=== PATIENT | female | born 1985 | race Caucasian/White ===

== ENCOUNTER 2022-12-06 09:13 | Emergency (ER) | payer OTHER, SELFPAY ==
[2022-12-06 09:24] VITALS: BP 188/77; PULSE 79; RESP 15; TEMP 36.7; O2SAT 98; BMI 35.2
--- NOTE | 2022-12-06 09:31 | PC.NURSE ---
Pt sent here for approx 10 days of bleeding,pt denies pain at triage.
[2022-12-06 09:48] LABS: Bacteria Urine None Seen; Culture Indicated Urine Cult Not Indicated; RBC Urine 10-30/HPF (0-5/HPF); WBC Urine None Seen (0-5/HPF)
[2022-12-06 09:49] LABS: Squamous Epithelial Cell Urine 0-1 /HPF (0-5/HPF)
--- NOTE | 2022-12-06 12:22 | DI.US.S_ITS ---
PROCEDURE: US PELVIC COMPLETE INDICATIONS: PELVIC PAIN [id number] DAYS HX FIB. ENDOMETRIOSIS LT OOPHO TECHNIQUE: Real-time scanning was performed of the pelvic organs, with image documentation. Additional endovaginal scanning was necessary due to incomplete visualization of the adnexal and endometrial structures by transabdominal scanning. COMPARISON: None. FINDINGS: Uterus: Uterus is normal in size at 4.8 x 5.4 x 10.1 cm. The myometrium is heterogeneous. The endometrium measures 7.8 mm combined thickness. Quality of visualization is somewhat limited by body habitus Ovaries: The right ovary measures 3.6 x 5.3 x 4.5 cm, with a calculated ovarian volume of 44.8 cc. A right ovarian cyst measuring 3.4 x 3.0 x 3.7 cm accounts for much of the enlargement of the ovarian volume. The right ovarian torsion is not suspected. The left ovary is surgically absent. Less than 12 follicles can be seen in each ovary. No adnexal masses are seen. Other: No pathologic free abdominal or pelvic fluid. IMPRESSION: Quality of visualization is somewhat limited by large body habitus. No definite acute disease. Dominant right ovarian cyst measures up to 3.4 x 3.0 x 3.7 cm, and there is no visualized evidence of ovarian torsion. Prior left oophorectomy. We strive to produce accurate, complete, and clear reports of imaging services. To assist us in improving patient care, this report was composed using standard report templates and voice recognition software. Therefore, it may contain abnormal punctuation, insertions and/or omissions. Occasional wrong-word or sound-alike substitutions may occur. Though we review the report and make efforts to correct it, we do recommend that the report be read carefully in proper context to recognize any text inaccuracies. Dictated by: Reddy Lynne M.D. on 12/06/2022 at 13:30 Approved by: Reddy Lynne M.D. on 12/06/2022 at 13:35
--- NOTE | 2022-12-06 12:24 | ED_ITS ---
HPI - Female Genitourinary <Myrtle Holguin PA-C - Last Filed: 12/06/22 14:51> General Chief complaint: Vaginal Bleeding Stated complaint: supected ectopic Time Seen by Provider: 12/06/22 10:57 Source: patient Mode of arrival: Ambulatory History of Present Illness HPI Narrative: Is a 37-year-old woman with history of solitary oophorectomy, fibroids, endometriosis who presents with concern for irregular bleeding and persistent bleeding for 10 days. She has also been experiencing much more intense bloating and cramping pain with her periods including pain that radiates from her pelvis down into her legs for the last 4 months which is unusual for her. Patient states that she had a normal period for her around October 12, she states her periods are normally like clock work and she has never had them be irregular. In early October she had some very very light spotting for a few days but no other bleeding. And then on November 27, 9 days ago she started bleeding very heavily with intense cramping pain and clots she states this lasted for a few days and has lightened up but has persisted. She typically has 2 days of heavy flow in 2 days of light flow her periods never last more than 4 days. Yesterday she started feeling a little bit dizzy and lightheaded and called the nurse line at the [facility] and they advised that she get evaluated and told her she should make sure to rule out an ectopic . Patient states that she was unable to get without IVF for about 19 years, she has been 3 times and had 1 successful IVF . She herself is not concerned for , but she is concerned that her endometriosis could be acting up or that she might have a fibroid causing her problems. Most women in her family have gone through menopause in her late 40s. She states she is sexually active but not on control. She denies syncope, severe abdominal pain, dysuria, or other symptoms. Related Data Allergies Allergy/AdvReac Type Severity Reaction Status Date / Time No Known Drug Allergies Allergy Verified 12/06/22 09:29 Review of Systems <Myrtle Holguin PA-C - Last Filed: 12/06/22 14:51> Review of Systems Narrative: See HPI Patient History <Myrtle Holguin PA-C - Last Filed: 12/06/22 14:51> alcohol intake frequency: holidays/special occasions only Substance Use Type: does not use Exam <Myrtle Holguin PA-C - Last Filed: 12/06/22 14:51> Narrative Exam Narrative: GENERAL: [37] year old patient appears stated age. Patient is slightly overweight, anxious appearing. Well-developed patient, in mild distress. HEAD: Atraumatic. Normocephalic. EYES: Pupils equal round and reactive. Extraocular motions intact. No scleral icterus. No injection or drainage. ENT: Nose without bleeding, purulent drainage. Airway patent. NECK: Trachea midline. Non tender CARDIOVASCULAR: Regular rate and rhythm without murmurs, gallops, or rubs. RESPIRATORY: Clear to auscultation. Breath sounds equal bilaterally. No wheezes, rales, or rhonchi. GASTROINTESTINAL: Abdomen soft, it is bloated, there is some mild left low quadrant tenderness, otherwise non-tender, nondistended. EXTREMITIES: No edema or joint tenderness. BACK: Nontender without deformity or crepitance. No flank tenderness. NEURO: AOx3. SKIN: No rash or erythema of visible areas Initial Vital Signs Initial Vital Signs: Vital Signs Temperature 98.1 F 12/06/22 09:24 Pulse Rate 79 12/06/22 09:24 Respiratory Rate 15 12/06/22 09:24 Blood Pressure 188/77 H 12/06/22 09:24 Pulse Oximetry 98 12/06/22 09:24 Oxygen Delivery Method Room Air 12/06/22 09:24 <Kathleen Alfaro DO - Last Filed: 12/07/22 13:05> Initial Vital Signs Initial Vital Signs: Vital Signs Temperature 98.1 F 12/06/22 09:24 Pulse Rate 79 12/06/22 09:24 Respiratory Rate 15 12/06/22 09:24 Blood Pressure 188/77 H 12/06/22 09:24 Pulse Oximetry 98 12/06/22 09:24 Oxygen Delivery Method Room Air 12/06/22 09:24 Course <Myrtle Holguin PA-C - Last Filed: 12/06/22 14:51> Course Course Narrative: Rechecked the patient and discussed the results from today's ultrasound and labs with the patient. Did offer to provide her with a disc and paper copy of the radiology read today so that she can share this with gynecology moving forward. She has no further questions. 1410 Orders Ordered: ED Orders 12/06/22 09:22 Urine Microscopic Stat 12/06/22 12:22 US pelvic complete Stat 12/06/22 13:20 CBC Auto Diff [Complete Blood Count AUTO DIFF] Stat CMP [Comprehensive Metabolic Panel] Stat Vital Signs Vital signs: Vital Signs - 8 hr 12/06/22 09:24 12/06/22 13:32 12/06/22 13:32 Temperature 98.1 F Pulse Rate 79 69 Respiratory Rate 15 Blood Pressure 188/77 H 129/74 Pulse Oximetry 98 99 Oxygen Delivery Method Room Air 12/06/22 13:59 12/06/22 14:22 Temperature 97.9 F Pulse Rate 60 Respiratory Rate 18 Blood Pressure Pulse Oximetry 100 Oxygen Delivery Method Room Air <Kathleen Alfaro DO - Last Filed: 12/07/22 13:05> Orders Ordered: ED Orders 12/06/22 09:22 Urine Microscopic Stat 12/06/22 12:22 US pelvic complete Stat 12/06/22 13:20 CBC Auto Diff [Complete Blood Count AUTO DIFF] Stat CMP [Comprehensive Metabolic Panel] Stat Vital Signs Vital signs: Vital Signs - 8 hr 12/06/22 09:24 12/06/22 13:32 12/06/22 13:32 Temperature 98.1 F Pulse Rate 79 69 Respiratory Rate 15 Blood Pressure 188/77 H 129/74 Pulse Oximetry 98 99 Oxygen Delivery Method Room Air 12/06/22 13:59 12/06/22 14:22 Temperature 97.9 F Pulse Rate 60 Respiratory Rate 18 Blood Pressure Pulse Oximetry 100 Oxygen Delivery Method Room Air MDM - Female Genitourinary <Myrtle Holguin PA-C - Last Filed: 12/06/22 14:51> Medical Records Attestation: I reviewed the patient's medical records. Lab Data Attestation: I reviewed the patient's lab results. 12/06/22 13:20 12/06/22 13:20 Labs: Lab Results 12/06/22 12/06/22 12/06/22 Range/Units 09:22 13:20 13:20 WBC 11.0 (4.5-11.0) X10^3/uL RBC 4.74 (4.0-5.2) X10^6/uL Hgb 12.7 (12.0-16.0) g/dL Hct 38.7 (36-46) % MCV 81.7 (80-100) fL MCH 26.8 (26-34) PG MCHC 32.8 (30-36) % RDW 14.0 (11.6-14.8) % Plt Count 310 (150-400) X10^3/uL Neut % (Auto) 69.8 (50-75) % Lymph % (Auto) 20.5 L (25-40) % [place] % (Auto) 5.4 (3-14) % Eos % (Auto) 3.4 (2-4) % Baso % (Auto) 0.9 (0-2) % Neut # (Auto) 7600 H (8472-7574) /uL Lymph # (Auto) 2300 (3957-7069) /uL [place] # (Auto) 600 (0-900) /uL Eos # (Auto) 400 (0-450) /uL Baso # (Auto) 100 (0-100) /uL Sodium 137 (137-145) mmol/L Potassium 4.2 (3.4-5.1) mmol/L Chloride 103 (98-107) mmol/L Carbon Dioxide 28 (22-32) mmol/L BUN 18 H (7-17) mg/dL Creatinine 0.79 (0.52-1.04) mg/dL Estimated GFR > 60 (>60) mL/min BUN/Creatinine Ratio 22.8 H (6-22) Glucose 95 (70-100) mg/dL Calcium 8.9 (8.4-10.2) mg/dL Total Bilirubin 0.5 (0.2-1.3) mg/dL AST 28 (14-36) IU/L ALT 24 (<35) IU/L Alkaline Phosphatase 94 (38-126) U/L Total Protein 7.1 (6.3-8.2) g/dL Albumin 4.0 (3.5-5.0) g/dL Globulin 3.1 (1.7-4.1) g/dL Albumin/Globulin Ratio 1.3 (1.0-2.8) Urine RBC 10-30/hpf H (0-5/HPF) Urine WBC None seen (0-5/HPF) Ur Squamous Epith Cells 0-1 /hpf (0-5/HPF) Urine Bacteria None seen (None) Ur Culture Indicated? Cult not indicated Point of Care Testing Test Results Negative Urine Dip Bedside Urine Glucose Negative Bedside Urine Bilirubin - Negative Bedside Urine Ketone - Negative Urine Specific [place] 1.025 Bedside Urine Occult Blood +++ Bedside Urine pH 6.0 Bedside Urine Protein - Negative Bedside Urine Urobilinogen - Negative Bedside Urine Nitrite - Negative Bedside Urine Leukocytes - Negative Esterase Imaging Data US - MANAGEMENT MANAGER: My Impression: I agree with radiologist Radiologist's Impression: [address] [address] Ultrasound Report Signed Patient: Simran Douglas MR#: [id number] : 1985 Acct:[id number] Age/Sex: 37 / F Date of Service: 12/06/22 Loc: ED Accession Number: [id number] ?? Procedure: US pelvic complete Ordering Provider: Myrtle Holguin P.A-C PROCEDURE:? US PELVIC COMPLETE ? INDICATIONS:? PELVIC PAIN? [id number] DAYS HX FIB. ENDOMETRIOSIS LT OOPHO ? TECHNIQUE:? Real-time scanning was performed of the pelvic organs, with image documentation.? Additional endovaginal scanning was necessary due to incomplete visualization of the adnexal and endometrial structures by transabdominal scanning.? ? COMPARISON:? None. ? FINDINGS:? ?? Uterus:? Uterus is normal in size at 4.8 x 5.4 x 10.1 cm. The myometrium is heterogeneous. ? The endometrium measures 7.8 mm combined thickness.? Quality of visualization is somewhat limited by body habitus ? Ovaries:? The right ovary measures 3.6 x 5.3 x 4.5 cm, with a calculated ovarian volume of 44.8 cc.? A right ovarian cyst measuring 3.4 x 3.0 x 3.7 cm accounts for much of the enlargement of the ovarian volume.? The right ovarian torsion is not suspected.? The left ovary is surgically absent.? Less than 12 follicles can be seen in each ovary.? No adnexal masses are seen. ? Other:? No pathologic free abdominal or pelvic fluid. ? ? IMPRESSION:? Quality of visualization is somewhat limited by large body wilson bitus.? No definite acute disease.? Dominant right ovarian cyst measures up to 3.4 x 3.0 x 3.7 cm, and there is no visualized evidence of ovarian torsion.? Prior left oophorectomy. ? We strive to produce accurate, complete, and clear reports of imaging services. To assist us in improving patient care, this report was composed using standard report templates and voice recognition software. Therefore, it may contain abnormal punctuation, insertions and/or omissions. Occasional wrong-word or sound-alike substitutions may occur. Though we review the report and make efforts to correct it, we do rec ommend that the report be read carefully in proper context to recognize any text inaccuracies. ? ? Dictated by: Reddy Lynne M.D. on 12/06/2022 at 13:30 ? ? Approved by: Reddy Lynne M.D. on 12/06/2022 at 13:35?? MDM Narrative Medical decision making narrative: This is a 37-year-old woman with history of 3 previous IVF attempts 1 term , endometriosis, single oophorectomy, fibroids, to previous exploratory laparoscopies who presents with concern for persistent vaginal bleeding lasting for 9 days in the setting of a missed period after her last regular period was 7 weeks prior. Patient's urine dip is negative. Per patient's history I think recent is unlikely and ectopic unlikely in the setting of a negative urine . Patient's history is concerning for recent increased bloating and persistent pain throughout her cycle as well as pain radiating into her legs during her menses, and now persistent bleeding for 9 days. Potential etiologies include endometriosis, ovarian cyst, bleeding fibroid, thickened endometrium, early menopause, cancer. Ultrasound and labs are obtained for further evaluation. Patient has no evidence of a UTI. Patient's CBC returns without evidence of anemia. Her CMP is unremarkable. Her ultrasound returned showing a ovarian cyst on the right about 3.4 x 3.7 x 3.5 cm without evidence of torsion and also noted a thickened endometrium proximally 7.8 mm. Discussed with the patient that possibly starting on control could help control bleeding symptoms given the thickened endometrium and following up closely with primary care and Gynecology for further evaluation. Patient is in understanding and agreement with the plan, return precautions provided, follow-up plan discussed, all questions answered. <Kathleen Alfaro, - Last Filed: 12/07/22 13:05> Lab Data Labs: Lab Results 12/06/22 12/06/22 12/06/22 Range/Units 09:22 13:20 13:20 WBC 11.0 (4.5-11.0) X10^3/uL RBC 4.74 (4.0-5.2) X10^6/uL Hgb 12.7 (12.0-16.0) g/dL Hct 38.7 (36-46) % MCV 81.7 (80-100) fL MCH 26.8 (26-34) PG MCHC 32.8 (30-36) % RDW 14.0 (11.6-14.8) % Plt Count 310 (150-400) X10^3/uL Neut % (Auto) 69.8 (50-75) % Lymph % (Auto) 20.5 L (25-40) % [place] % (Auto) 5.4 (3-14) % Eos % (Auto) 3.4 (2-4) % Baso % (Auto) 0.9 (0-2) % Neut # (Auto) 7600 H (0523-7851) /uL Lymph # (Auto) 2300 (2986-4333) /uL [place] # (Auto) 600 (0-900) /uL Eos # (Auto) 400 (0-450) /uL Baso # (Auto) 100 (0-100) /uL Sodium 137 (137-145) mmol/L Potassium 4.2 (3.4-5.1) mmol/L Chloride 103 (98-107) mmol/L Carbon Dioxide 28 (22-32) mmol/L BUN 18 H (7-17) mg/dL Creatinine 0.79 (0.52-1.04) mg/dL Estimated GFR > 60 (>60) mL/min BUN/Creatinine Ratio 22.8 H (6-22) Glucose 95 (70-100) mg/dL Calcium 8.9 (8.4-10.2) mg/dL Total Bilirubin 0.5 (0.2-1.3) mg/dL AST 28 (14-36) IU/L ALT 24 (<35) IU/L Alkaline Phosphatase 94 (38-126) U/L Total Protein 7.1 (6.3-8.2) g/dL Albumin 4.0 (3.5-5.0) g/dL Globulin 3.1 (1.7-4.1) g/dL Albumin/Globulin Ratio 1.3 (1.0-2.8) Urine RBC 10-30/hpf H (0-5/HPF) Urine WBC None seen (0-5/HPF) Ur Squamous Epith Cells 0-1 /hpf (0-5/HPF) Urine Bacteria None seen (None) Ur Culture Indicated? Cult not indicated Point of Care Testing Test Results Negative Urine Dip Bedside Urine Glucose Negative Bedside Urine Bilirubin - Negative Bedside Urine Ketone - Negative Urine Specific [place] 1.025 Bedside Urine Occult Blood +++ Bedside Urine pH 6.0 Bedside Urine Protein - Negative Bedside Urine Urobilinogen - Negative Bedside Urine Nitrite - Negative Bedside Urine Leukocytes - Negative Esterase Discharge Plan Departure Patient Disposition: Home Clinical Impression: Vaginal bleeding Activity Restrictions/Additional Instructions: Thank you for letting us be part of your care in the emergency department today. We did check some labs on you and thankfully you do not have evidence of anemia, we also did an ultrasound of your pelvis to further evaluate. This did show that you have an ovarian cyst on the right side and it also showed that you have a somewhat thickened endometrium. At this point the bleeding that you have had for the past 9 days has not caused it to become anemic, however if you do have persistent bleeding that does not resolve it is definitely reasonable to consider starting on control the hormonal effects of this can help reduce the endometrial stripe and reduce bleeding, you can discuss this with your primary care provider. It is also possible that this will not be a persistent problem for you as he is never had this issue in the past. I do think that you should definitely have further evaluation with Gynecology to discuss these findings. We did provided with a disc of the ultrasound imaging from today taht you can share with your providers. If you do have persistent, new or worsening symptoms do not hesitate to seek re-evaluation. There is no evidence of an emergent or life threatening illness at this time, but follow up with your doctor in 1-2 days is recommended nonetheless to continue to rule out serious underlying causes of your symptoms. Please call the office for an appointment. Please return to the Emergency Department for any worsening or persistent symptoms. Please take medications as directed. Referrals: ProviderIan [Primary Care Provider] - Stand Alone Forms: Patient Portal/API <Kathleen Alfaro DO - Last Filed: 12/07/22 13:05> Cosign ED Attending Keshavature Attestation: I was immediately available in the department for consultation. Documentation has been reviewed.
[2022-12-06 13:27] LABS: Add Manual Diff / Slide Review NO; Basophils Absolute Auto 100 /uL (0-100); Basophils Percent Auto 0.9 % (0-2); Eosinophils Absolute Auto 400 /uL (0-450); Eosinophils Percent Auto 3.4 % (2-4); Hematocrit 38.7 % (36-46); Hemoglobin 12.7 g/dL (12.0-16.0); Lymphocytes Absolute Auto 2300 /uL (1100-4500); Lymphocytes Percent Auto 20.5 % (25-40); Mean Corpuscular HGB Conc 32.8 % (30-36); Mean Corpuscular Hemoglobin 26.8 PG (26-34); Mean Corpuscular Volume 81.7 fL (80-100); Monocytes Absolute Auto 600 /uL (0-900); Monocytes Percent Auto 5.4 % (3-14); Neutrophils Absolute Auto 7600 /uL (1500-7000); Neutrophils Percent Auto 69.8 % (50-75); Platelet Count 310 X10^3/uL (150-400); Red Blood Cell Count 4.74 X10^6/uL (4.0-5.2)
[2022-12-06 13:32] VITALS: BP 129/74; PULSE 69; O2SAT 99
[2022-12-06 13:40] LABS: Alanine Aminotransferase 24 IU/L (<35); Albumin Globulin Ratio 1.3 (1.0-2.8); Alkaline Phosphatase 94 U/L (38-126); Aspartate Aminotransferase 28 IU/L (14-36); BUN Creatinine Ratio 22.8 (6-22); Bilirubin Total 0.5 mg/dL (0.2-1.3); Blood Urea Nitrogen 18 mg/dL (7-17); Calcium 8.9 mg/dL (8.4-10.2); Carbon Dioxide 28 mmol/L (22-32); Chloride 103 mmol/L (98-107); Estimated Glomerular Filt Rate > 60 mL/min (>60); Globulin 3.1 g/dL (1.7-4.1); Glucose 95 mg/dL (70-100); HEMOLYSIS < 15 (0-50); Potassium 4.2 mmol/L (3.4-5.1); Sodium 137 mmol/L (137-145); Total Protein 7.1 g/dL (6.3-8.2)
[2022-12-06 13:59] VITALS: TEMP 36.6
[2022-12-06 14:22] VITALS: PULSE 60; RESP 18; O2SAT 100
== END 2022-12-06 14:24 | disposition home or self-care (01) ==
PROVIDERS: Emergency Medicine; Emergency Provider Student in an Organized Health Care Education/Training Program
DX: N93.9 Abnormal uterine and vaginal bleeding, unspecified (principal); R10.2 Pelvic and perineal pain
CPT/HCPCS: 36415; 76830; 76856; 80053; 81003; 81015; 81025; 85025; 99283; 99284

== ENCOUNTER → 2023-01-10 13:31 | Outpatient (CLI) | payer OTHER, SELFPAY ==
[2023-01-10 15:44] LABS: Cancer Antigen 125 25.4 U/mL (0-35)
== END ==
PROVIDERS: Referring Provider Obstetrics & Gynecology; Visit Provider Obstetrics & Gynecology
DX: N83.201 Unspecified ovarian cyst, right side (principal)
CPT/HCPCS: 36415; 86304